=== PATIENT | female | born 1985 | race Caucasian/White ===

== ENCOUNTER 2019-05-04 23:03 | Inpatient (IN) ==
[2019-05-05] MEDS ORDERED: NS 500 ML IV ONE (00:26)
[2019-05-05] MEDS ORDERED: NARCAN IV ONE ×2 (00:37→03:26)
[2019-05-05 01:06] LABS: BASO# 0.02 X1000 (0.0-0.2); BASO% 0.3 % (0.0-0.8); EOS# 0.11 X1000 (0.0-0.7); EOS% 1.8 % (0.0-10.0); HEMATOCRIT 37.5 % (37.0-47.0); LYMPH# 2.35 X1000 (1.2-3.4); LYMPH% 39.2 % (20.5-51.1); MCH 27.3 PG (27-31); MCV 85.4 FL (81-99); MONO# 0.68 X1000 (0.11-0.59); MONO% 11.3 % (1.7-9.3); MPV 9.7 FL (7.4-10.4); NEUT# 2.84 X1000 (1.4-6.5); NEUT% 47.4 % (42.2-75.2); PLT 255 X1000 (130-400); RBC 4.39 XMIL (4.2-5.4); RDW 14.6 % (11.5-14.5)
[2019-05-05 01:21] LABS: AGAP 13; ALB/GLOB RATIO 1.2; ALBUMIN 4.1 g/dL (3.5-5.0); ALKALINE PHOSPHATASE 87 U/L (32-104); BUN 9 mg/dL (8-22); CHLORIDE 99 mmol/L (98-107); COSMO 273; CREATININE 0.7 mg/dL (0.5-0.9); ESTIMATED GFR > 60; GLUCOSE 80 mg/dL (70-104); GOT 45 U/L (10-30); GPT 35 U/L (10-36); MAGNESIUM 1.9 mg/dL (1.5-2.7); POTASSIUM 3.9 mmol/L (3.5-5.1); SODIUM 138 mmol/L (136-145); TCO2 26 mmol/L (25-35); TOTAL BILIRUBIN 0.37 mg/dL (0.20-1.00); TOTAL PROTEIN 7.6 g/dL (6.3-8.3)
[2019-05-05 01:24] LABS: URINE SOURCE CLEAN CATCH
[2019-05-05 01:33] LABS: BILIRUBIN URINE NEGATIVE (NEGATIVE); BLOOD URINE LARGE (NEGATIVE); COLOR ORANGE; GLUCOSE URINE NEGATIVE (NEGATIVE); KETONE URINE 20 mg/dL (NEGATIVE); LEUKOCYTES URINE MODERATE (NEGATIVE); NITRITE URINE POSITIVE (NEGATIVE); PROTEIN URINE 70 mg/dL (NEGATIVE); SP GRAVITY URINE 1.029; TURBIDITY URINE TURBID (CLEAR); UR EPITHELIAL CELLS <10 /HPF (<10); URINE BACTERIA 2+ /HPF; URINE WBC 20-40 /HPF (<10); UROBILINOGEN URINE NORMAL (NORMAL)
[2019-05-05 01:41] LABS: UR AMPHETAMINES QUAL PRESUMPTIVE POSITIVE (NONE DETECT); UR BARBITUATES QUAL NONE DETECTED (NONE DETECT); UR BENZODIAZEPIN QUAL PRESUMPTIVE POSITIVE (NONE DETECT); UR CANNABINOIDS QUAL NONE DETECTED (NONE DETECT); UR COCAINE QUAL NONE DETECTED (NONE DETECT); UR METHADONE QUAL NONE DETECTED (NONE DETECT); UR OPIATES QUAL PRESUMPTIVE POSITIVE (NONE DETECT); UR OXYCODONE QUAL NONE DETECTED (NONE DETECT); UR PCP QUAL NONE DETECTED (NONE DETECT)
[2019-05-05 01:58] LABS: URINE CASTS NONE SEEN; URINE CRYSTALS CA OXALATE PRESENT; URINE SMALL ROUND CELLS NONE SEEN; URINE YEAST PRESENT
[2019-05-05] MEDS ORDERED: ROCEPHIN 1 GM in NS 50 ML IV ONE (03:23)
--- NOTE | 2019-05-05 05:02 | EKG Report ---
Test Performed on : 05/05/2019 01:36:47 AM Test Reason : INGESTON/OVERDOSE Blood Pressure : / mmHG Vent. Rate : 089 BPM Atrial Rate : 089 BPM P-R Int : 138 ms QRS Dur : 084 ms QT Int : 394 ms P-R-T Axes : 064 039 020 degrees QTc Int : 479 ms Normal sinus rhythm. Inferior infarct , age undetermined Cannot rule out Anterior infarct , age undetermined Abnormal ECG When compared with ECG of 02-MAR-2011 22:39, Inferior infarct is now present Nonspecific T wave abnormality now evident in Inferior leads Unconfirmed Result
--- NOTE | 2019-05-05 05:12 | Diag Imaging Result Doc PS360 ---
EXAM: FLAT/UPRIGHT ABD/1 VIEW CHEST HISTORY: ENGESTION PLASTIC BAG/DRUGS TECHNIQUE: Three views COMPARISON: 06/16/2010 FINDINGS: The lungs are well expanded. No cardiomegaly. No pneumonia. There is a small nodule in the mid right lung which was not present on prior exam. No free air beneath the diaphragm. No bowel obstruction. There is stool throughout the colon. No organomegaly. No foreign body identified. No abnormal calcifications. IMPRESSION: 1.Constipation 2.New right lung nodule which may be a granuloma. CT without contrast is suggested. Electronically signed by Denver Baez 05/05/2019 5:10 AM
[2019-05-05] MEDS ORDERED: NARCAN 2 MG in NS 500 ML IV SCH (05:15)
--- NOTE | 2019-05-05 06:19 | HISTORY AND PHYSICAL ---
ADDENDUM: Ms. Riley was brought in by the [place] police after she was "trying to cory an [employer] nearby". Apparently, the patient states she had a cousin who planned to cory the place, "I believe the police were alerted and her cousin took off". The bag they were using to put their stolen items in contained some heroin which the patient knew about, but she did not want to get caught so she took the whole amount of heroin. She was then taken into custody where they noticed she was lethargic, and brought her in. She developed opioid toxicity. She was given a total of 3 mg of Narcan. Currently, she is awake, alert, and oriented, and remorseful. Urine drug screen also showed benzodiazepines and amphetamines despite the patient telling us that she has been clean for 2 years. PHYSICAL EXAMINATION: Her exam was essentially benign. Blood pressure 120/79, heart rate 99, and respirations was 23 with 97% on room air. Temperature 97.4. X-ray does show constipation, but the rest of her labs were totally benign. PLAN: The plan is to observe this patient over the next 24 hours. The patient had to be given a total of 3 mg of Narcan to maintain alertness. Otherwise, she would be profoundly lethargic and probably develop hypopnea or apnea. Other findings of note, her UA was also positive for UTI, and this also needs to be treated. cc: Warren Sherman MD
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
[2019-05-05 09:16] LABS: BASO# 0.01 X1000 (0.0-0.2); BASO% 0.3 % (0.0-0.8); EOS# 0.12 X1000 (0.0-0.7); EOS% 3.1 % (0.0-10.0); HEMATOCRIT 37.2 % (37.0-47.0); HEMOGLOBIN 11.7 g/dL (12.0-16.0); LYMPH# 1.84 X1000 (1.2-3.4); LYMPH% 46.8 % (20.5-51.1); MCH 27.3 PG (27-31); MCHC 31.5 g/dL (33-37); MCV 86.9 FL (81-99); MONO# 0.43 X1000 (0.11-0.59); MONO% 10.9 % (1.7-9.3); NEUT# 1.53 X1000 (1.4-6.5); NEUT% 38.9 % (42.2-75.2); PLT 231 X1000 (130-400); RBC 4.28 XMIL (4.2-5.4); RDW 14.7 % (11.5-14.5); WBC 3.93 X1000 (4.8-10.8)
[2019-05-05 09:31] LABS: AGAP 14; BUN 11 mg/dL (8-22); CALCIUM 8.4 mg/dL (8.8-10.2); CHLORIDE 102 mmol/L (98-107); COSMO 275; CREATININE 0.6 mg/dL (0.5-0.9); ESTIMATED GFR > 60; GLUCOSE 60 mg/dL (70-104); SODIUM 139 mmol/L (136-145); TCO2 23 mmol/L (25-35)
[2019-05-05] MEDS: LOVENOX SUBQ SCH (10:37)
[2019-05-05] MEDS: NS 1,000 ML IV SCH ×2 (10:37→19:36)
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
[2019-05-05] MEDS: ZOFRAN IV PRN (18:32)
[2019-05-05] MEDS ORDERED: NICODERM PATCH TD PRN (20:18)
[2019-05-06] MEDS: ZOFRAN IV PRN (00:42)
[2019-05-06] MEDS ORDERED: TYLENOL PO PRN (01:43)
[2019-05-06] MEDS ORDERED: SODIUM CHLORIDE 0.9% INJ PRN (01:43)
[2019-05-06] MEDS: PHENERGAN IV PRN ×3 (01:52→11:45)
[2019-05-06] MEDS: LOVENOX SUBQ SCH (08:36)
[2019-05-06] MEDS ORDERED: ROCEPHIN 1 GM in NS 50 ML IV SCH (09:00)
[2019-05-06] MEDS ORDERED: SUBUTEX SL STA (11:20)
[2019-05-06] MEDS ORDERED: FLU VACCINE IM ONE (13:12)
[2019-05-06 14:59] VITALS: BP 114/78
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
== END 2019-05-06 13:45 | disposition home or self-care (01) | DRG 917 ==
LOC: ED 23:03 → EDIPHOLD 05-05 06:53 → SUATTDRO 05-05 06:53 → ICU 05-05 15:07
PROVIDERS: ATTEND Internal Medicine